=== PATIENT | female | born 1940 ===

== ENCOUNTER 2018-07-07 16:01 | Inpatient (IN) | payer OTHER ==
[2018-07-07] MEDS ORDERED: Sodium Chloride 0.9% 1,000 ML IV SCH (17:00)
--- NOTE | 2018-07-07 17:45 | RAD ---
Date of service: 07/07/2018 HISTORY: Sepsis Patient COMPARISON: No prior. TECHNIQUE: 1 view obtained. FINDINGS: LUNGS: Infiltrate suspected the mid to inferior right lung zone however mass is not excluded here for follow-up chest is advised for greater characterization. No air bronchograms are seen within this opacity. This could also reflect loculated pleural effusion. No left pleural effusion. No pneumothorax bilaterally. Reticular nodular changes are suggested the bilateral pulmonary apices. PLEURA: As above. CARDIOVASCULAR: No aortic atherosclerotic calcification present. Normal cardiac size. No pulmonary vascular congestion. OSSEOUS STRUCTURES: No significant abnormalities. VISUALIZED UPPER ABDOMEN: Normal. OTHER FINDINGS: None. IMPRESSION: Abnormal density at the right base laterally may reflect infiltrate, likely pleural effusion or even mass. Follow-up chest is advised for further characterization of this area.
[2018-07-07 18:06] LABS: BASO # 0.1 K/uL (0.0-0.2); BASO % 0.3 % (0.0-2.0); HEMOGLOBIN 11.6 g/dL (12.0-16.0); LYMPH # 1.6 K/uL (1.0-4.3); LYMPH % 7.7 % (20.0-40.0); MEAN CELL VOLUME 79.9 fl (81.0-99.0); MEAN CORPUSCULAR HGB CONC 32.5 g/dL (33.0-37.0); MEAN PLATELET VOLUME 9.8 fl (7.2-11.7); MONO # 1.8 K/uL (0.0-0.8); MONO % 8.9 % (0.0-10.0); NEUT % 83.1 % (50.0-75.0); NRBC % 0.1 % (0.0-0.0); PLATELET COUNT 146 K/uL (130-400); RBC 4.47 Mil/uL (3.80-5.20); RED CELL DISTRIBUTION WIDTH 14.3 % (11.5-14.5); WHITE BLOOD COUNT 20.5 K/uL (4.8-10.8)
[2018-07-07 18:19] LABS: ALB/GLOB RATIO 0.9 (1.0-2.1); ALBUMIN 3.3 g/dL (3.5-5.0); ALT/SGPT 33 U/L (9-52); AST/SGOT 42 U/L (14-36); BLOOD UREA NITROGEN 17 mg/dl (7-17); CALCIUM 8.7 mg/dL (8.4-10.2); GFR NON-AFRICAN AMERICAN 54; LIPASE 214 U/L (23-300)
[2018-07-07 18:20] LABS: ABG ALLEN TEST YES; ARTERIAL BLOOD GAS HCO3 25.3 mmol/L (21-28); ARTERIAL BLOOD GAS O2 SAT 96.7 % (95-98); ARTERIAL BLOOD GAS PCO2 35 mm/Hg (35-45); ARTERIAL BLOOD GAS PH 7.45 (7.35-7.45); ARTERIAL BLOOD GAS PO2 56 mm/Hg (80-100); ARTERIAL BLOOD GAS TCO2 25.4 mmol/L (22-28)
[2018-07-07 18:30] LABS: B-TYPE NATRIURETIC PEPTIDE 1430 pg/ml (0-900)
--- NOTE | 2018-07-07 18:38 | ED PDOC ---
HPI:Nausea, Vomiting, Diarrhea Time Seen by Provider: 07/07/18 16:45 Chief Complaint (Nursing): Trauma Chief Complaint (Provider): GI problem History Per: Patient, [employer]er [employer] (preferred family) History/Exam Limitations: no limitations Onset/Duration Of Symptoms: Days (6x) Current Symptoms Are (Timing): Still Present Severity: Moderate Associated Symptoms: Fever, Nausea, Vomiting, Other (generalized weakness) Additional Complaint(s): 77 year old female with a past medical history of hepatitis C and hypertension presents to the ED for an evaluation of nausea, vomiting, and fevers ongoing for 6x days. As per family, 5x nights ago patient began experiencing nausea and had 3x episodes of vomiting and a subjective fever. Patient checked her temperature last night and it was 102 F. Patient also reports having shortness of breath (unchanged from usual),generalized weakness and needs assistance getting up and walking, and has a burning sensation in her legs. Patient reports vomiting upon arrival to ED. Patient reports taking advil and tylenol at home with no relief. Patient denies having arm pain, shoulder pain, headaches (at this time), cough, congestion, abdominal pain, or dysuria. Family further states that the patient had a doctor's appointment yesterday and were told that her liver problems are worsening and the patien "has little time to live". Of note: Patient reports feeling dizzy and falling down 3x weeks ago and injuring her chest. Patient reports having right sided chest pain since then. PMD: Anish Lopez MD Past Medical History Reviewed: Historical Data, Nursing Documentation, Vital Signs Vital Signs: Last Vital Signs Temp 99.2 F 07/07/18 18:24 Pulse 117 H 07/07/18 18:24 Resp 18 07/07/18 18:24 BP 121/73 07/07/18 16:03 Pulse Ox 96 07/07/18 18:24 RAMILA Report Viewed: Yes Primary Care Provider: Anish Lopez - Medical History PMH: Hepatitis (c), HTN - Family History Family History: States: No Known Family Hx - Social History Current smoker - smoking cessation education provided: No Alcohol: None Drugs: Denies - Home Medications Home Medications: Ambulatory Orders Medication Instructions Recorded Acetaminophen with Codeine 1 tab PO Q6H PRN #10 tab 06/05/15 [Tylenol with Codeine No. 3 300 mg-30 mg] Nitrofurantoin Macrocrystals 100 mg PO BID #13 cap 11/17/17 [Macrobid] Ondansetron ODT [Zofran ODT] 4 mg PO Q8 PRN #10 odt 11/17/17 - Allergies Allergies/Adverse Reactions: Allergies Allergy/AdvReac Type Severity Reaction Status Date / Time No Known Allergies Allergy Verified 11/16/17 23:16 Review of Systems ROS Statement: Except As Marked, All Systems Reviewed And Found Negative Constitutional: Positive for: Fever (102 F), Weakness ENT: Negative for: Nose Congestion Cardiovascular: Positive for: Chest Pain (right sided) Respiratory: Negative for: Cough Gastrointestinal: Positive for: Nausea, Vomiting. Negative for: Abdominal Pain Musculoskeletal: Positive for: Other (burning sensation in legs). Negative for: Shoulder Pain, Arm Pain Physical Exam - Reviewed Nursing Documentation Reviewed: Yes Vital Signs Reviewed: Yes - Physical Exam Appears: Positive for: Uncomfortable Head Exam: Positive for: ATRAUMATIC, NORMOCEPHALIC Skin: Positive for: Normal Color, Warm, Dry Eye Exam: Positive for: EOMI, PERRL, Scleral icterus (jaundice) ENT: Positive for: Normal ENT Inspection Neck: Positive for: Normal, Painless ROM, Supple Cardiovascular/Chest: Positive for: Tachycardia. Negative for: Chest Non Tender (right sided chest wall tenderness) Respiratory: Positive for: Normal Breath Sounds Gastrointestinal/Abdominal: Positive for: Normal Exam, Soft. Negative for: Tenderness Extremity: Positive for: Normal ROM. Negative for: Tenderness, Pedal Edema, Calf Tenderness, Swelling Neurological/Psych: Positive for: Awake, Alert, Oriented (3x) - Laboratory Results Result Diagrams: 07/07/18 17:40 07/07/18 17:40 Lab Results: pCO2 35 mm/Hg (35-45) 07/07/18 18:12 pO2 56 mm/Hg (80-100) L 07/07/18 18:12 HCO3 25.3 mmol/L (21-28) 07/07/18 18:12 ABG pH 7.45 (7.35-7.45) 07/07/18 18:12 ABG Total CO2 25.4 mmol/L (22-28) 07/07/18 18:12 ABG O2 Saturation 96.7 % (95-98) 07/07/18 18:12 ABG Base Excess 0.7 mmol/L (-2.0-3.0) 07/07/18 18:12 Benji Test Yes 07/07/18 18:12 ABG Potassium 3.0 mmol/L (3.6-5.2) L 07/07/18 18:12 A-a O2 Difference 50.0 mm/Hg 07/07/18 18:12 Sodium 131.0 mmol/L (132-148) L 07/07/18 18:12 Chloride 103.0 mmol/L (98-107) 07/07/18 18:12 Glucose 134 mg/dL (65-105) H 07/07/18 18:12 Lactate 1.2 mmol/L (0.7-2.1) 07/07/18 18:12 FiO2 21.0 % 07/07/18 18:12 Troponin I < 0.0120 ng/mL (0.00-0.120) 07/07/18 17:40 NT-Pro-B Natriuret Pep 1430 pg/ml (0-900) H 07/07/18 17:40 Total Bilirubin 1.7 mg/dl (0.2-1.3) H 07/07/18 17:40 AST 42 U/L (14-36) H D 07/07/18 17:40 ALT 33 U/L (9-52) 07/07/18 17:40 Alkaline Phosphatase 163 U/L (38-126) H D 07/07/18 17:40 Total Protein 6.9 G/DL (6.3-8.2) 07/07/18 17:40 Albumin 3.3 g/dL (3.5-5.0) L 07/07/18 17:40 Globulin 3.6 gm/dL (2.2-3.9) 07/07/18 17:40 Albumin/Globulin Ratio 0.9 (1.0-2.1) L 07/07/18 17:40 Lipase 214 U/L (23-300) 07/07/18 17:40 - ECG ECG: Positive for: Interpreted By Me, Viewed By Me ECG Rhythm: Positive for: Sinus Tachycardia O2 Sat by Pulse Oximetry: 96 (RA) Pulse Ox Interpretation: Normal - Radiology X-Ray: Read By Radiologist X-Ray Interpretation: Infiltrates (RLL) - Other Rad us X-Ray Interpretation: no acute per tech read - CT Scan/US ct Other Rad Studies (CT/US): Read By Radiologist Other Rad Interpretation: no acute - Progress ED Course And Treament: 1800: Continue tx. Pt. getting better. 1856: Stable. AAOx3. Feels better. Spoke with Dr. Lopez. Will admit. Wants zosyn as well. Tx for pneumonia and chf. Will give fluids cautiously as pt. in chf. - Critical Care Total Time (In Min): 30 Documented Critical Care: Time excludes all time spent performint seperately billable procedures Medical Decision Making Medical Decision Makin:45 Initial impression: 77 year old female with nausea, vomiting, fevers, and right sided chest pain. Initial plan: * CT head w/o contrast * US abdomen * XRay chest * ABG * ammonia * B-type natriuretic peptie * CMP * lipase * magnseium * phosphrous * troponin I * udip * CBC with diff * PT/PTT * blood culture * urine culture * influenza * urinalysis * IV NS 1,000 ml IV 1,000 mls/hr * toradol 30 mg IV * zofran 4 mg IV * reevaluation Scribe Attestation: Documented by Comfort Castaneda, acting as a scribe for Raf Miranda MD. Provider Scribe Attestation: All medical record entries made by the Scribe were at my direction and personally dictated by me. I have reviewed the chart and agree that the record accurately reflects my personal performance of the history, physical exam, medical decision making, and the department course for this patient. I have also personally directed, reviewed, and agree with the discharge instructions and disposition. Disposition - Clinical Impression Clinical Impression: Sepsis, Pneumonia, CHF (congestive heart failure), Hypokalemia - Patient ED Disposition Is Patient to be Admitted: Yes Counseled Patient/Family Regarding: Studies Performed, Diagnosis - Disposition Disposition Time: 19:00 Condition: FAIR
[2018-07-07] MEDS ORDERED: cefTRIAXone (Rocephin) 1 gm Inj IV ONE (18:41)
[2018-07-07] MEDS ORDERED: Potassium Chloride 20 mEq ER Tab PO STA (18:43)
[2018-07-07] MEDS ORDERED: Piperacillin/Tazobact 3.375 GM in Sodium Chloride 0.9% 100 ML IV STA (18:50)
[2018-07-07] MEDS ORDERED: cefTRIAXone (Rocephin) 1 gm Inj ONE (19:21)
[2018-07-07] MEDS ORDERED: Potassium Chloride 20 mEq ER Tab PO ONE (19:22)
[2018-07-07] MEDS ORDERED: Azithromycin 500 MG IV IVPB ONE (19:22)
[2018-07-07] MEDS ORDERED: Piperacillin/Tazobact 3.375 gm Inj IVPB ONE (19:22)
[2018-07-07 20:01] LABS: LYMPHOCYTE 10 % (20-50); MONOCYTE 4 % (0-10); NEUTROPHIL 85 % (42-75); REACTIVE LYMPHOCYTES 1 % (0-0); TOTAL CELLS COUNTED 100
[2018-07-07 20:02] LABS: MICROCYTOSIS SLIGHT; PLATELET ESTIMATE NORMAL (NORMAL)
[2018-07-07 20:03] LABS: HYPOCHROMIC SLIGHT; TARGET CELLS SLIGHT
[2018-07-07 20:17] LABS: SQUAMOUS EPITHIAL 1 /hpf (0-5); URINE BACTERIA RARE (<OCC); URINE BILIRUBIN NEGATIVE (NEGATIVE); URINE BLOOD SMALL (NEGATIVE); URINE CLARITY TURBID (Clear); URINE COLOR AMBER (YELLOW); URINE GLUCOSE (UA) NEG (NEGATIVE); URINE LEUKOCYTE ESTERASE SMALL Leu/uL (Negative); URINE PROTEIN >=500 mg/dL (NEGATIVE)
[2018-07-07 20:35] LABS: INR 1.5; PROTHROMBIN TIME 16.7 Seconds (9.8-13.1)
[2018-07-07 20:38] LABS: PARTIAL THROMBOPLASTIN TIME 33.4 Seconds (25.6-37.1)
[2018-07-08] MEDS: Piperacillin/Tazobact 3.375 GM in Sodium Chloride 0.9% 100 ML IVPB SCH ×2 (04:50→09:14)
[2018-07-08 05:49] LABS: HEMOGLOBIN 11.4 g/dL (12.0-16.0); MEAN CELL VOLUME 80.1 fl (81.0-99.0); MEAN CORPUSCULAR HEMOGLOBIN 26.2 pg (27.0-31.0); MEAN CORPUSCULAR HGB CONC 32.7 g/dL (33.0-37.0); RBC 4.33 Mil/uL (3.80-5.20); RED CELL DISTRIBUTION WIDTH 14.8 % (11.5-14.5); WHITE BLOOD COUNT 19.3 K/uL (4.8-10.8)
[2018-07-08 06:00] LABS: ALB/GLOB RATIO 0.8 (1.0-2.1); ALBUMIN 3.1 g/dL (3.5-5.0); CALCIUM 8.6 mg/dL (8.4-10.2)
--- NOTE | 2018-07-08 13:40 | CT ---
Date of service: 07/07/2018 PROCEDURE: CT HEAD WITHOUT CONTRAST. HISTORY: headache COMPARISON: None available. TECHNIQUE: Axial computed tomography images were obtained through the head/brain without intravenous contrast. Radiation dose: Total exam DLP = 698.92 mGy-cm. This CT exam was performed using one or more of the following dose reduction techniques: Automated exposure control, adjustment of the mA and/or kV according to patient size, and/or use of iterative reconstruction technique. FINDINGS: HEMORRHAGE: No intracranial hemorrhage. BRAIN: Good corticomedullary differentiation is seen. Proportional, diffuse expansion of the ventriculosulcal and cisternal spaces is appreciated with white matter lucency compatible with diffuse cerebral atrophy and chronic microangiopathy. No suspicious extra-axial fluid collection is identified and the midline brain anatomy appears grossly nonfocal as imaged. There is no mass effect throughout. No atrophy or chronic microvascular ischemic changes. VENTRICLES: Unremarkable. No hydrocephalus. CALVARIUM: Unremarkable. PARANASAL SINUSES: Unremarkable as visualized. No significant inflammatory changes. MASTOID AIR CELLS: Unremarkable as visualized. No inflammatory changes. OTHER FINDINGS: None. IMPRESSION: No definite acute intracranial findings appreciable. Age-related neuro degenerative changes are seen as described above. Concordant preliminary report from [facility], 07/07/2018, 6:39 p.m..
--- NOTE | 2018-07-08 14:03 | CT ---
Date of service: 07/08/2018 PROCEDURE: CT Chest without contrast HISTORY: lung mass COMPARISON: Portable chest radiograph 07/07/2018. TECHNIQUE: Contiguous axial images were obtained through the chest without intravenous contrast enhancement. Sagittal and coronal reconstructions were performed. Radiation dose: Total exam DLP = 245.54 mGy-cm. This CT exam was performed using one or more of the following dose reduction techniques: Automated exposure control, adjustment of the mA and/or kV according to patient size, and/or use of iterative reconstruction technique. FINDINGS: LUNGS: Limited biapical fibrosis, right greater than left. Dense right lower lobe lateral infiltrate with minimal right upper lobe infiltrate nearly adjacent to the major fissure. Limited patchy infiltrate is question in the right middle lobe MEDIASTINUM: Unremarkable thoracic aorta. No aneurysm. Normal sized heart. Main pulmonary artery unremarkable. No vascular congestion. Lqyh-hv-bjnkozvc mediastinal lymphadenopathy is appreciate including a subcarinal lymph node measuring 3.0 x 1.7 cm. Inferior pretracheal lymph node measures 2.7 x 2.0 cm and a mid tracheal pretracheal lymph node measures 1.9 x 1.6 cm. Calcific atherosclerotic changes are seen related to the thoracic aorta. PLEURA: No pleural fluid. No pneumothorax. BONES: No fracture identified or destructive bony lesion. Grade 1 spondylolisthesis is seen with L2 posterior to L3 and L3 anterior to L4, less than 1 cm distance in both cases. UPPER ABDOMEN: Cirrhotic liver suggested. OTHER FINDINGS: None. IMPRESSION: 1. Dense right lower lobe infiltrate with limited infiltrate identified at the right upper lobe and minimally at the right middle lobe potentially. No definite pulmonary mass isolated at this time. Consider follow-up CT following therapy. 2. Jjjx-ex-ayvbfqym mediastinal lymphadenopathy. 3. Limited biapical fibrosis. 4. Incidental cirrhotic liver suggested. Grade 1 spondylolistheses L2-3 and L3-4.
--- NOTE | 2018-07-08 16:18 | CP.PCM.PN ---
Subjective - Date & Time of Evaluation Date of Evaluation: 07/08/18 Time of Evaluation: 16:18 - Subjective Subjective: I D NOTE PATIENT EVALUATED PNEUMONIA RENAL INSUFFICIENCY CHF HAVE ADJUSTED DOSE OF ZOSYN,STARTED CLINDAMYCIN Objective - Vital Signs/Intake and Output Vital Signs (last 24 hours): Temp Pulse Resp BP Pulse Ox 97.8 F 126 H 18 117/68 99 07/08/18 13:30 07/08/18 13:30 07/08/18 13:30 07/08/18 13:30 07/08/18 08:58 - Medications Medications: Current Medications Acetaminophen (Tylenol 325mg Tab) 650 mg PO Q6 PRN PRN Reason: Fever >100.4 F Furosemide (Lasix) 20 mg IVP DAILY TED Last Admin: 07/08/18 09:17 Dose: 20 mg Heparin Sodium (Porcine) (Heparin) 5,000 units SC Q12 TED; Protocol Last Admin: 07/08/18 09:15 Dose: 5,000 units Piperacillin Sod/Tazobactam (Sod 2.25 gm/ Sodium Chloride) 100 mls @ 100 mls/hr IVPB Q6 TED; Protocol Clindamycin Phosphate 600 mg/ (Sodium Chloride) 54 mls @ 54 mls/hr IVPB Q12 TED; Protocol - Labs Labs: 07/08/18 04:25 07/08/18 04:25 PT 16.7 Seconds (9.8-13.1) H 07/07/18 20:00 INR 1.5 07/07/18 20:00 APTT 33.4 Seconds (25.6-37.1) 07/07/18 20:00
--- NOTE | 2018-07-08 17:37 | US ---
Date of service: 07/07/2018 HISTORY: vomiting; eval pancreas and liver/gb COMPARISON: None. TECHNIQUE: Sonographic evaluation of the right upper quadrant of the abdomen. FINDINGS: LIVER: Measures 16.0 cm in length. Normal echogenicity of the liver parenchyma. Borderline nodular surface of the liver may indicate and cirrhosis but this is not definite. No cyst or solid parenchymal mass appreciated. GALLBLADDER: Gallbladder is distended with questionable sludge or possible polyp/adenomyosis at the dependent portion mid fundus level. No pericholecystic fluid collection or gross mural thickening evident. COMMON BILE DUCT: Measures 3.0 mm. No stones. No dilatation. PANCREAS: Unremarkable as visualized. No mass. No ductal dilatation. RIGHT KIDNEY: Measures 10.0 cm in length. Normal echogenicity. No calculus, mass, or hydronephrosis. AORTA: No aneurysmal dilatation. IVC: Unremarkable. OTHER FINDINGS: None . IMPRESSION: Borderline cirrhotic pattern to the liver with liver otherwise unremarkable. Trace sludge or possible adenomyosis or polyp at the pendant gallbladder without definite cholelithiasis evident. Normal caliber CBD. No definite intrahepatic biliary dilatation appreciable. Preliminary report provided by [facility], 07/07/2018, 5:58 p.m..
--- NOTE | 2018-07-08 19:05 | CARD ---
APPROVED REPORT Date of service: 07/07/2018 EKG Measurement Heart [id number] <Conclusion> Sinus tachycardia Possible Left atrial enlargement Borderline ECG
--- NOTE | 2018-07-08 20:41 | HP ---
HISTORY OF PRESENT ILLNESS: This is a 77-year-old female with a history of multiple medical problems, presented to emergency room with symptoms of generalized weakness, fever and chills that has progressed over the last five days prior to admission. The patient was evaluated in the emergency room and she was found to have multilobar right middle lobe and lower lobe pneumonia with questionable obstructive pneumonia. The patient was started on IV antibiotics and admitted for further management. REVIEW OF SYSTEMS: Other review of systems is positive for decreased appetite. PAST MEDICAL HISTORY: Positive for hepatitis C and vitamin D deficiency. SOCIAL HISTORY: No history of smoking, EtOH or substance abuse. FAMILY HISTORY: Noncontributory. MEDICATIONS: As per MAR, reviewed and ordered. PHYSICAL EXAMINATION: GENERAL: The patient is not in cardiopulmonary distress at the time of this examination. VITAL SIGNS: Temperature 102, heart rate 111, blood pressure 127/63, and respiratory rate 18. HEENT: Pupils equal and reactive to light. Normal-appearing mucosa of the conjunctivae, oropharynx and nasal membrane mucosa. NECK: Supple. No JVD. No carotid bruit. No lymph node. No thyromegaly. CHEST AND LUNGS: Bilateral symmetrical expansion. Good air exchange. No rales and no rhonchi. Decreased air entry in the right lung and lower lobe, middle and lower lung mckinney. CARDIOVASCULAR SYSTEM: PMI not localized. S1 and S2. No additional sounds. ABDOMEN: Normoactive bowel sounds. No tenderness, no organomegaly and no masses. EXTREMITIES: No cyanosis, no clubbing, and no edema. CENTRAL NERVOUS SYSTEM: Alert, awake, and oriented x3. No neurological deficit could be appreciated. ASSESSMENT: Sepsis, the patient is tachycardic and has fever and she has lung infiltrate. PLAN: We will do blood culture and start the patient on IV antibiotics. ID consult. Monitor the patient on telemetry. I discussed with the patient's family, daughters, son and brother at the bedside. Anish Lopez MD
[2018-07-08] MEDS: Clindamycin 600mg/50ml NS 600 MG/50 ML BAG IVPB SCH (21:19)
[2018-07-09 08:09] VITALS: RESP 18
--- NOTE | 2018-07-09 08:16 | CON ---
DATE: 07/08/2018 HISTORY OF PRESENT ILLNESS: This is a 77-year-old female with past medical history of hepatitis C and hypertension. She came to the emergency room with problem of nausea, vomiting, and fevers for approximately a week. The family also involved in the history, who stated that she had three episodes of vomiting and fever. She checked her temperature last night and it was 102. She also reports having shortness of breath and burning sensation in her legs. She had taken some medication for fever, which included Advil and Tylenol and had no relief. No other pain was noted. Apparently, she was seeing a doctor about her liver problems. I am unsure of what was going on with her liver and I just will have to talk to the family when I see them tomorrow or the next day. PHYSICAL EXAMINATION: GENERAL: She is awake, uncomfortable as noted. HEENT: Within normal limits. NECK: Supple. HEART: Regular sinus rhythm. LUNGS: Decreased breath sounds in right and left base, right greater than the left. ABDOMEN: Soft. Positive bowel sounds. EXTREMITIES: No C/C/E. LABORATORY DATA: Chest CT showed dense right lower lobe infiltrate with limited infiltrate identified on the right upper lobe and minimally at the right middle lobe, obvious bilateral pneumonia. Liver has cirrhosis. WBC is 20.5 to 19.3, platelet count is 151, and neutrophils 85%. Bilirubin is 1.7 and 1.4. AST is 42 and ALT 33. GFR is 43 and creatinine is 1.2. ASSESSMENT AND PLAN: I have adjusted the dose and it is possible pneumonia along with aspiration to a renal dose and have a more renal dose, and I have added clindamycin 600 mg IV piggyback every 12 hours. Jefry Balbuena MD
[2018-07-09] MEDS: Clindamycin 600mg/50ml NS 600 MG/50 ML BAG IVPB SCH ×2 (08:46→20:49)
[2018-07-09 11:56] LABS: HEMOGLOBIN 11.1 g/dL (12.0-16.0); MEAN CELL VOLUME 78.9 fl (81.0-99.0); MEAN CORPUSCULAR HEMOGLOBIN 25.8 pg (27.0-31.0); MEAN CORPUSCULAR HGB CONC 32.7 g/dL (33.0-37.0); RBC 4.33 Mil/uL (3.80-5.20); RED CELL DISTRIBUTION WIDTH 15.1 % (11.5-14.5); WHITE BLOOD COUNT 11.5 K/uL (4.8-10.8)
[2018-07-09 12:12] LABS: BLOOD UREA NITROGEN 19 mg/dl (7-17); CALCIUM 8.1 mg/dL (8.4-10.2); GFR NON-AFRICAN AMERICAN 54
[2018-07-09] MEDS ORDERED: Potassium Chloride 20 mEq/15 ml LIQ UD PO SCH (13:30)
--- NOTE | 2018-07-09 17:45 | CARD ---
APPROVED REPORT Date of service: 07/09/2018 EXAM: Two-dimensional and M-mode echocardiogram with Doppler and color Doppler. Other Information Quality : AverageRhythm : Tachycardia INDICATION Elevated Pro BNP 2D DIMENSIONS IVSd1.04 (0.7-1.1cm)LVDd3.54 (3.9-5.9cm) LVOT Diameter1.93 (1.8-2.4cm)PWd0.90 (0.7-1.1cm) IVSs1.23 (0.8-1.2cm)LVDs2.27 (2.5-4.0cm) FS (%) 35.9 %PWs1.10 (0.8-1.2cm) M-Mode DIMENSIONS Left Atrium (MM)2.15 (2.5-4.0cm)IVSd1.08 (0.7-1.1cm) Aortic Root2.84 (2.2-3.7cm)LVDd4.14 (4.0-5.6cm) Aortic Cusp Exc.1.76 (1.5-2.0cm)PWd1.13 (0.7-1.1cm) IVSs1.38 cmFS (%) 47 % LVDs2.21 (2.0-3.8cm)PWs1.88 cm Aortic Valve AoV Peak Bticmffn383.3cm/sAoV VTI22.2cmAO Peak GR.9mmHg LVOT Peak Ikrhmozy182.8cm/sLVOT VTI18.33cmAO Mean GR.5mmHg MIKI (VMAX)1.75yu7MVG (VTI)1.57cm2 Mitral Valve MV E Kahyfwog93.4cm/sMV DECEL HBRO390zeQZ A Mndguhie23.2cm/s MV PJX35phC/A ratio0.7MVA (PHT)3.74cm2 TDI Lateral E' Peak V12.63cm/sMedial E' Peak V5.70cm/sE/Lateral E'4.6 E/Medial E'10.2 Tricuspid Valve TR Peak Einnuwbo635xj/sRAP FUSHELDD35gbQmQU Peak Gr.21mmHg [id number] LEFT VENTRICLE The left ventricle is normal size. There is normal left ventricular wall thickness. The left ventricular systolic function is normal. The estimated ejection fraction is 60-65% No regional wall motion abnormalities noted.. Transmitral Doppler flow pattern is Grade I-abnormal relaxation pattern. No left ventricle thrombus noted on this study. There is no ventricular septal defect visualized. There is no left ventricular aneurysm. There is no mass noted in the left ventricle. RIGHT VENTRICLE The right ventricle is normal size. There is normal right ventricular wall thickness. The right ventricular systolic function is normal. ATRIA The left atrium size is normal. The right atrium size is normal. The interatrial septum is intact with no evidence for an atrial septal defect. AORTIC VALVE The aortic valve is normal in structure. Mild aortic regurgitation is present. There is no aortic valvular stenosis. There is no aortic valvular vegetation. MITRAL VALVE The mitral valve is normal in structure. There is no evidence of mitral valve prolapse. There is no mitral valve stenosis. There is no mitral valve regurgitation noted. TRICUSPID VALVE The tricuspid valve is normal in structure. There is mild tricuspid valve regurgitation noted. RVSP is calculated at 26 mm Hg. There is no tricuspid valve prolapse or vegetation. There is no tricuspid valve stenosis. PULMONIC VALVE The pulmonary valve is normal in structure. There is no pulmonic valvular regurgitation. There is no pulmonic valvular stenosis. GREAT VESSELS The aortic root is normal in size. The ascending aorta is normal in size. The pulmonary artery is normal. The IVC is normal in size and collapses >50% with inspiration. PERICARDIAL EFFUSION There is no pericardial effusion. There is no pleural effusion. <Conclusion> The estimated ejection fraction is 60-65% Transmitral Doppler flow pattern is Grade I-abnormal relaxation pattern. The left atrium size is normal. Mild aortic regurgitation is present. There is mild tricuspid valve regurgitation noted. RVSP is calculated at 26 mm Hg.
[2018-07-09] MEDS ORDERED: Potassium Chloride 20 mEq/15 ml LIQ UD PO ONE (21:06)
--- NOTE | 2018-07-10 02:06 | PN ---
DATE: 07/09/2018 SUBJECTIVE: The patient is seen today, 07/09/2018. She is still tachycardic, but CAT scan of the chest was done and it showed multilobar pneumonia. The patient is afebrile and current IV antibiotics. Potassium is low at 0.7. PHYSICAL EXAMINATION: VITAL SIGNS: Blood pressure 114/73, temperature 98.5, respiratory rate 18, and pulse 113. HEENT: Pupils equal, reactive to light. Normal-appearing mucosa of the conjunctivae, oropharynx and nasal membrane mucosa. NECK: Supple. No JVD. No carotid bruit. No lymph node. No thyromegaly. CHEST AND LUNGS: Bilateral symmetrical expansion. Good air exchange. No rales, no rhonchi. CARDIOVASCULAR SYSTEM: PMI not localized. S1, S2. No additional sounds. ABDOMEN: Normoactive bowel sounds. No tenderness, no organomegaly, no masses. EXTREMITIES: No cyanosis, no clubbing, no edema. CENTRAL NERVOUS SYSTEM: Alert, awake, oriented x2. No neurological deficit could be appreciated. LABORATORY DATA: CAT scan of the chest showed dense right lower lobe infiltrate with limited infiltrate identified at the right upper lobe and minimally at the right middle lobe. No definite pulmonary mass isolated at this time. Mild to moderate mediastinal lymphadenopathy. Limited biapical fibrosis. Incidental cirrhotic liver suggested. Grade 1 spondylolisthesis, L2-L3 and L3-L4. ASSESSMENT: 1. Multilobar pneumonia. 2. History of hepatitis C. 3. Degenerative spine disease. PLAN: Continue current IV antibiotics. Supplement potassium for hypokalemia secondary to diuretics. Continue pvc monitor at this point due to tachycardia. Anish Lopez MD
[2018-07-10 05:07] LABS: HEMOGLOBIN 10.7 g/dL (12.0-16.0); MEAN CELL VOLUME 78.8 fl (81.0-99.0); MEAN CORPUSCULAR HEMOGLOBIN 26.2 pg (27.0-31.0); MEAN CORPUSCULAR HGB CONC 33.3 g/dL (33.0-37.0); RBC 4.09 Mil/uL (3.80-5.20); RED CELL DISTRIBUTION WIDTH 14.8 % (11.5-14.5); WHITE BLOOD COUNT 9.4 K/uL (4.8-10.8)
[2018-07-10 05:31] LABS: BLOOD UREA NITROGEN 19 mg/dl (7-17); CALCIUM 8.3 mg/dL (8.4-10.2); GFR NON-AFRICAN AMERICAN > 60
[2018-07-10] MEDS: Clindamycin 600mg/50ml NS 600 MG/50 ML BAG IVPB SCH (09:11)
--- NOTE | 2018-07-10 15:11 | CP.PCM.PCO ---
Assessment/Plan - Assessment and Plan (Free Text) Assessment: Patient seen and examined VSS, no leukocytosis no fevers Ambulated with physical therapy freely with no complaints. Patient cleared by ID for discharge with PO antibiotics. Discussed with Dr Lopez, patient will be discharge to home with po abx and ziac 2.5/6.25 mg PO daily.
[2018-07-10 16:04] VITALS: BP 120/71; PULSE 104; TEMP 98.6; O2SAT 98
--- NOTE | 2018-07-11 05:34 | DS ---
REASON FOR ADMISSION: This is a 77-year-old female who was admitted to the hospital for multilobar right-sided pneumonia. COURSE OF HOSPITALIZATION: The patient was admitted to telemetry floor, and she was started on IV antibiotics. Initially, the patient had white blood cell count of 20,500. After IV antibiotics, the patient's white blood cell count came down to 9.4. The patient had an ID consult by Dr. Balbuena. During the patient's stay, potassium went down to 2.7 and after replenishing, the potassium came up to 4.1. The patient feels much better. She will be discharged home on p.o. antibiotics and to follow up next week. We will repeat the chest x-ray. FINAL DIAGNOSES: Multilobar pneumonia, history of peripheral neuropathy, hypokalemia, history of hepatitis C. Anish Lopez MD
== END 2018-07-10 17:40 | disposition home health service (06) | DRG 871 ==
LOC: H.ER 16:01 → H.ERHOLD 19:08 → H.TEL 22:28
PROVIDERS: ADMIT Internal Medicine; ATTEND Internal Medicine
DX: A41.9 Sepsis, unspecified organism (principal); J18.1 Lobar pneumonia, unspecified organism; E87.6 Hypokalemia; I11.0 Hypertensive heart disease with heart failure; I50.9 Heart failure, unspecified; N28.9 Disorder of kidney and ureter, unspecified; R00.0 Tachycardia, unspecified; B19.20 Unspecified viral hepatitis C without hepatic coma; G62.9 Polyneuropathy, unspecified; E55.9 Vitamin D deficiency, unspecified